=== PATIENT | female | born 1980 | race Caucasian/White ===

== ENCOUNTER → 2017-01-01 | Outpatient (CLI) | payer BC, OTHER ==
--- NOTE | 2017-01-01 16:40 | US ---
Dear MATHEW Loredo, , Thank you for sending your patient, Crystal Pastrana, to us for an US and consultation to assess anatomy. As you know, the patient is a 36 y.o. G2, P1001 at 19 weeks and 4 days with an EDC of 7 based on LMP and 7 week US. Her is complicated by AMA at the time of delivery, thyroid dy sfunction, and a family history of DVT. Crystal's medical history is remarkable for a thyroid nodule and anti-TPO antibodies. She has always had a normal TSH and TFTs and is not on thyroid replacement. She is followed closely by her Endocrino logist, Dr. Mccabe, in this . She had normal TFTs in the 1st and 2nd trimester and will have them checked again with Dr. Mccabe in the 3rd trimester. Crystal's surgical history is significant f or a L inguinal hernia repair. Her OB history is significant for a term . She is currently taking PNV and reports an allergy to erythromycin and sulfa. Crystal's mother developed a DVT in at age 27. She then developed a second DVT at age [address] flight. Crystal believes that her mother was tested for thrombophilias and was n egative. Crystal has no personal history of blood clots and has never been tested for thrombophilias. Genetic Screening: NIPT 46XX (per patient report), AFP neg The patient denies any uterine contractions, vaginal bleeding, or loss of fluid. Today, she is withou t complaints. US FINDINGS: Number of fetuses: 1 Placental location: Posterior, LOW-LYING with inferior edge 1.6 cm from the internal os on transvagin al US Placental Cord Insertion: MARGINAL, inserts in the superior placental edge presentation: Breech Cervix: 5.5 cm, on transvaginal ultrasound MVP: 3.1 cm The adnexa were evaluated. No pathology was seen. Right ovary: Normal Left ovary: Suboptimal heart rate: 139 bpm Measurements: Biparietal diameter: 40 mm, 18 weeks 1 days Head circumference: 159 mm, 18 weeks 6 days Abdominal circumference: 147 mm, 20 weeks 0 days Femur length: 31 mm, 19 weeks 4 days Humerus length: 29 mm, 19 weeks 4 days Transcerebellar diameter: 19 mm, 18 weeks 5 days Average ultrasound age: 19 weeks 1 days Estimated weight: 302 g weight percentile: 47% Anatomy: Supratentorial brain: Normal Cerebral lateral ventricle: 4.6 mm Posterior fossa: Normal Cisterna magna: 3.5 mm Nuchal fold: 3.5 mm Face: - Lip: Normal - Profile: Normal - Alveolar Ridge: Appears intact Spine: -- Cervical: Suboptimal -- Thoracic: Suboptimal -- Lumbar: Suboptimal -- Sacral: Suboptimal Heart: -- 4 Chamber: Normal -- Intraventricular septum: Appears intact by Color and Spectral US -- Right Outflow Tract: Normal -- Left Outflow Tract: Normal -- 3 Vessel View: Normal -- Aortic Arch: Normal -- Ductal Arch: Normal -- Caval View: Normal Diaphragm: Appears intact Stomach: Normal Abdominal Umbilical Cord Insertion: Normal Right kidney: Normal Left kidney: Normal Bladder: Normal Number of cord vessels: 3 Upper extremities: -- Right Arm: Normal -- Right Hand: Limited -- Left Arm: Normal -- Left Hand: Normal Lower extremities: -- Right Leg: Normal -- Right Foot: Suboptimal -- Left Leg: Normal -- Left Foot: Normal, no club foot Gender: Female IMPRESSION: 1. Anatomy: The fetus measures appropriate for gestational age, measuring a normal weight and percen tile. Visualization of the fetus today reveals no overt structural anomalies. However, the spin e, right hand, and right foot were not well seen secondary to position. There is evidence of no rmal amniotic fluid, and movement was seen during the examination. - Recommend a follow-up US in 4-6 weeks to reassess these anatomic structures 2. Genetic Screening: This patient has had reassuring NIPT results this , per her report. To day, no markers of aneuploidy were seen. While her screening and US results are reassuring, we reviewed that aneuploidy can only be definitively excluded with diagnostic testing via amniocen tesis. After this discussion, the patient does not wish to proceed with invasive testing at this time . - Verify reassuring NIPT results 3. Marginal Cord Insertion: This is associated with IUGR. - Growth US at 28-32 weeks 4. Low-Lying Placenta: We discussed that this is likely to resolve with advancing gestational age. We reviewed bleeding precautions. - Reassess placental position at 28-32 weeks 5. Family History of DVT in : Crystal has no personal history of DVT, but has never been saman adelina for inherited thrombophilias. Her mother has had 2 DVTs, one of which occurred at age 27 in pregn yousif. If Crystal was a carrier of a low-risk thrombophilia, this family history would dictate prophyl axis with Lovenox 40 mg daily for 6 weeks . - Obtain records of Crystal's mother's thrombophilia test results - If testing cannot be obtained, consider testing Crystal for the inherited thrombophilias - DVT symptoms and warning signs were discussed Thank you again for sending this patient to see us today. Approximately 15 minutes of a total visit t mariaelena of 12 minutes were spent with this patient today in direct face to face counseling regarding parker shoemaker's US findings and the above recommendations. Please feel free to contact me with any questions at . Crystal Marinelli MD Maternal- Medicine
--- NOTE | 2017-01-02 09:54 | US ---
Complete Detailed Obstetrical Sonography Clinical History: 36-year-old female who will be 37 at the time of delivery and therefore of advanced maternal age. The patient presents for anatomic screening and biometry. Technique: A curvilinear 5 MHz transducer was used to sonographically evaluate the fetus and placenta . M-mode Doppler is used. Supplementary endovaginal pelvic sonography was obtained at the level of th e maternal cervix to assess positioning of the placenta. Dr. Crystal Marinelli was present. Cine clips are acquired. Comparison Study: None from the current . LMP: August 17, 2016, indicating an age of 19 weeks 4 days, and an estimated date of delivery of J 2016. Findings: There is a single viable intrauterine gestation, with the fetus currently breech in present ation. The placenta is posterior and low-lying with the caudal margin 1.6 cm from the internal os as seen on endovaginal sonography, and there is normal maternal cervical length of 5.5 cm. There is a th ree-vessel cord with marginal placental cord insertion along the superior edge of the placenta. The a mniotic fluid volume is appropriate, with a maximal vertical pocket of 3.1 cm. The maternal right ova ry measures 2.5 x 1.1 x 2.8 cm. The left adnexal region is obscured by bowel gas, and the maternal le ft ovary is not identified. The heart rate is 139 bpm. The anatomic survey reveals a normal appearance to the supratentorial and infratentorial struct ures. The lateral ventricular diameter is 4.6 mm, cisterna magna is 3.5 mm, and the nuchal fold is 3. 5 mm. The nasolabial anatomy and alveolar ridge are normal. The spine is evaluated in sagittal and transverse planes, and there is no overt abnormality identified. There is a four-chambered heart, interventricular septum, inflow and outflow tracts, three-vessel view, and aortic and ductal arches. The diaphragm is intact. The stomach, right and left kidneys, urinary bladder, and upper and lower e xtremities are identified, although there is some limited assessment of the right hand and right foot . The gender is female. biometry is as follows: The biparietal diameter is 40 mm, corresponding to an age of 18 weeks 1 day +/- 1 week 6 days, which is at the 4th percentile. The head circumference is 159 mm, corresponding to an age of 18 weeks 6 days +/- 1 week 4 days, which is at the 11th percentile. The abdominal circumference is 147 mm, corresponding to an age of 20 weeks 0 days +/- 2 weeks 1 day, which is at the 58th percentile. The femur length is 31 mm, corresponding to an age of 19 weeks 4 days +/- 1 week 6 days, which is at the 40th percentile. The humeral length is 29 mm, corresponding to an age of 19 weeks 4 days. The transcerebellar diameter is 19 mm, corresponding to an age of 18 weeks 5 days +/- 1 week 0 days f or a composite gestational age of 19 weeks 1 day, which is concordant with menstrual dating. The estimated weight is 302 g +/- 44 g which is 11 ounces +/- 2 ounces, which is at the 47th pe rcentile. The head circumference to abdominal discomfort ratio measures 1.08. The femur length to biparietal di ameter ratio is 78%, and the femur length to abdominal circumference ratio is 21%. Impression: There is a single viable intrauterine gestation with no overt structural anomaly, h aving biometry concordant with menstrual dating. There is also a low-lying placenta with marginal cor d insertion. Please also refer to Dr. Marinelli's separate assessments and specific recommendations for follow up of anatomy.
== END ==
LOC: FIMAGING 14:25
PROVIDERS: ATTEND Advanced Practice Midwife
DX: O09.522 Supervision of elderly multigravida, second trimester (principal); O99.282 Endocrine, nutritional and metabolic diseases complicating pregnancy, second trimester; O36.5120 Maternal care for known or suspected placental insufficiency, second trimester, not applicable or unspecified; O44.42 Low lying placenta NOS or without hemorrhage, second trimester; E07.9 Disorder of thyroid, unspecified; Z3A.19 19 weeks gestation of pregnancy; Z82.49 Family history of ischemic heart disease and other diseases of the circulatory system

== ENCOUNTER → 2017-03-30 | Outpatient (CLI) | payer BC | LOC: FIMAGING 14:55 | PROVIDERS: ATTEND Advanced Practice Midwife | DX: O09.523 Supervision of elderly multigravida, third trimester (principal); Z3A.32 32 weeks gestation of pregnancy ==

== ENCOUNTER 2017-05-06 08:00 | Inpatient (IN) | payer BC ==
[2017-05-06] MEDS ORDERED: OXYTOCIN/RINGERS LACTATE 1,000 ML IV PRN (09:09)
[2017-05-06] MEDS ORDERED: TERBUTALINE SULFATE 1 MG/ML VIAL IV PRN (09:09)
[2017-05-06] MEDS ORDERED: EPSOM SALT 454 GM TP PRN (09:09)
[2017-05-06] MEDS ORDERED: IBUPROFEN 600 MG TAB PO PRN (09:09)
[2017-05-06] MEDS ORDERED: LR 1,000 ML IV PRN (09:09)
[2017-05-06] MEDS ORDERED: OLIVE OIL 118 ML BTL MISC PRN (09:09)
[2017-05-06 09:22] LABS: % IMMATURE GRANULYOCYTES 0.9 % (0.0-1.1); ABSOLUTE IMMATURE GRANULOCYTES 0.09 10^3/uL (0.00-0.10); ADD DIFF? NO; ADD MORPH? NO; ADD SCAN? NO; ATYPICAL LYMPHOCYTE FLAG 10 (0-99); FRAGMENT RBC FLAG 0 (0-99); HEMATOCRIT 37.6 % (38.0-47.0); HEMOGLOBIN 13.2 g/dL (12.6-16.3); LEFT SHIFT FLG 0 (0-99); LIPEMIA HEMOLYSIS FLAG 90 (0-99); MEAN CELL HEMOGLOBIN 32.9 pg (27.9-34.1); MEAN CELL HEMOGLOBIN CONCENTR. 35.1 g/dL (32.4-36.7); MEAN CELL VOLUME 93.8 fL (81.5-99.8); MEAN PLATELET VOLUME 11.1 fL (8.7-11.7); PLATELET CLUMPS FLAG 50 (0-99); PLATELET COUNT 216 10^3/uL (150-400); RED BLOOD CELL COUNT 4.01 10^6/uL (4.18-5.33); RED CELL DISTRIBUTION WIDTH 12.9 % (11.5-15.2)
[2017-05-06] MEDS ORDERED: MISOPROSTOL 200 MCG TAB ONE (10:03)
[2017-05-06] MEDS ORDERED: LIDOCAINE 1% 300 MG/30 ML SDV ONE (10:16)
[2017-05-06] MEDS ORDERED: HYDROCODONE/APAP 5/325 TAB PO PRN (10:31)
[2017-05-06] MEDS ORDERED: ACETAMINOPHEN 325 MG TAB PO PRN (10:31)
[2017-05-06] MEDS ORDERED: MEASLES,MUMPS&RUBELLA VACC/PF 0.5 ML VIAL SC ONE (10:32)
--- NOTE | 2017-05-06 10:36 | OBDEL ---
Info Type: Vaginal GBS+: No Indications for Delivery: Spontaneous Labor, SROM Vaginal Delivery - Labor and Delivery Onset of Contractions Date: 05/06/17 Onset of Contractions Time: 06:30 Onset of Contractions Type: Spontaneous Rupture of Membranes Date: 05/06/17 Rupture of Membranes Time: 04:00 Rupture of Membranes Type: Spontaneous Amniotic Fluid Color: Clear Dilation Complete Date: 05/06/17 Dilation Complete Time: 10:04 Placenta Delivery Date: 05/06/17 Placenta Delivery Time: 10:15 Total Hours of Labor: 3 Laceration: 1st Degree, Other (Specify) (midline) Vaginal Sponge Count Correct: Yes Vaginal Needle Count Correct: Yes Vaginal Sweep Performed: No EBL: 300 Delivery Events: None - Medications Labor Augmentation/Induction Methods Used: None [place] [facility] Delivery Date: 05/06/17 Delivery Time: 10:07 LAVINIA: 05/24/17 Gestational Age: 37 week(s) and 3 day(s) Sex of : Female (Va) Score (1 Min): 8 Score (5 Min): 9 ICD10 Worksheet Patient Problems: Problems Problem Status Onset (spontaneous vaginal delivery) Acute
--- NOTE | 2017-05-06 10:43 | OBGCSDC ---
General Delivery Information - General Info : 2 Para: 2 Abortions: 0 Delivery Physician/CNM: June Donis Admission Date: 05/06/17 Labs: Patient ABO/Rh A POSITIVE 05/06/17 08:30 Hct 37.6 % (38.0-47.0) L 05/06/17 08:30 Vaginal - Diagnosis Labor: Spontaneous Presentation at Delivery: Vertex Rupture of Membranes Type: Spontaneous Amniotic Fluid Color: Clear Laceration: 1st Degree, Other (Specify) (midline) Delivery Events: None - Hospital Course Antepartum: Marginal CI with normal growth U/S in third trimester. AMA. increased one hour glucola with normal 3 hour - Delivery Type: Vaginal EBL: 300 [place] [facility] Delivery Date: 05/06/17 Delivery Time: 10:07 LAVINIA: 05/24/17 Gestational Age: 37 week(s) and 3 day(s) Sex of Infant: Female (Va) Score (1 Min): 8 Score (5 Min): 9
--- NOTE | 2017-05-06 20:35 | GHP ---
[f rep st] HISTORY AND PHYSICAL DATE OF ADMISSION: 05/06/2017 HISTORY UPON ADMISSION: Patient is a 37-year-old, , at 37 weeks' gestation with an estimated d ue date of 05/24/2017, who presented in early active labor after spontaneous rupture of membranes at 4 a.m. with spontaneous onset of contractions at approximately 6:30 am. The patient's contractions were building upon admission, and the patient was intending to have a natural approach at labor. T he fluid was clear upon rupture. The patient was having good movement and managing her pain. The patient was not initially checked on exam as she was just naturally laboring well. HISTORY: Patient has been followed with [facility] [place] since 20 weeks' gestation. Patient had a transfer of care from another office. Patient has had a low-lying placenta with a mar ginal cord insertion noted on an early ultrasound. She had a followup ultrasound at 32 weeks with g ood growth of 55th percentile with no longer a low-lying placenta but a continued marginal cord inse rtion. Good fluid noted on exam. Patient had an episode at 28 weeks of increased contractions and was evaluated with a fibronectin, which was negative, as well a beta strep culture, which was negative. The patient's cervix was not having any change of fingertip dilation, and the patient was advised to increase rest and hydration. This improved the frequency of the contractions. Otherwis e, the has been uncomplicated. LABORATORY DATA: Maternal blood type of A positive with negative antibody screen, RPR nonr eactive, hepatitis B surface antigen negative, HIV negative. Rubella titer was low immunity. TSH w as normal with a normal free T4. Hepatitis C antibody was negative. HSV 1 and 2 were negative. Ur inalysis and culture negative. Pap smear normal. Verifi testing was negative with negative MSAFP. Hematocrit was 37%. 1-hour Glucola was elevated, but a followup 3-hour GTT was normal. GBS cultur e testing was negative. 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 She had a thyroid nodule noted and assessed by an endocrino logist, and was noted to have an anti-TPO antibody. The patient reports reactive airway disease but has been assessed and is negative for asthma. SURGICAL HISTORY: Left inguinal hernia repair in 2009. PAST OBSTETRIC HISTORY: In October 2013, a viable male delivered at 38 weeks after spontaneous rup ture of membranes at 7 pounds 8 ounces. GBS was positive in that . ALLERGIES: To erythromycin causing anaphylaxis and to sulfa causing a rash. CURRENT MEDICATIONS: Only vitamins and iron. SOCIAL HISTORY: The patient is . Lives with her and their son. Patient is a nonsmo ker. No alcohol or drug use. PHYSICAL EXAMINATION: GENERAL: Upon admission, the patient is a well-developed, well-nourished, wh ite female, in discomfort with contractions but showing very good stoic control. VITAL SIGNS: Afeb rile with normal vital signs upon admission. Initial blood pressure was in the 130s over 80s, and a repeat was slightly lower. It was difficult to assess in between the frequent contractions. heart tone monitoring revealed a category 1 tracing with baseline in the 130s with good variability and accelerations; no decelerations noted. Contractions were every 2-3 minutes upon admission. PE LVIC: Not examined upon admission, as the patient was allowed to just naturally labor. Fluid was c onfirmed to be leaking and clear. EXTREMITIES: Nontender with no edema. With Luis's, the baby was in a vertex presentation. ASSESSMENT: Intrauterine at 37 weeks' gestation with spontaneous rupture of membranes and spontaneous onset of labor. GBS culture negative. Marginal cord insertion. History of Bobby' s, not currently on medication. PLAN: We will allow the patient to spontaneously labor and prepare for a vaginal delivery. /[id number]/MODL
--- NOTE | 2017-05-07 07:46 | OBGCSDC ---
General Delivery Information - General Info : 2 Para: 2 Abortions: 0 Delivery Physician/CNM: June Donis Admission Date: 05/06/17 Labs: Patient ABO/Rh A POSITIVE 05/06/17 08:30 Hct 37.6 % (38.0-47.0) L 05/06/17 08:30 Vaginal - Diagnosis Labor: Spontaneous Presentation at Delivery: Vertex Rupture of Membranes Type: Spontaneous Amniotic Fluid Color: Clear Laceration: 1st Degree, Other (Specify) (midline) Delivery Events: None - Operations/Procedures L&D Analgesia/Anesthesia Type: None - Hospital Course : Pt seen and examined. Doing well, no complaints. Some cramping while BF-no meds taken. Moderate lochia. Voiding without difficulty. No BM yet. BF without difficulty. Wants to go home today. - Delivery L&D Analgesia/Anesthesia Type: None [place] [facility] Delivery Date: 05/06/17 Delivery Time: 10:07 LAVINIA: 05/24/17 Gestational Age: 37 week(s) and 4 day(s) Sex of Infant: Female (Va) Weight (gm): 3136 g Score (1 Min): 8 Score (5 Min): 9 Discharge Information - Discharge Information Discharge Medications: Vitamins Condition: Good Instruction/Follow Up: Six Weeks (and 4 weeks) Discharge Physician/CNM: Cecy Seymour
--- NOTE | 2017-05-07 07:48 | OBPP ---
Progress Note Assessment/Plan: Assessment: s/p PPD # 1 - pt is stable Plan: Continue routine pp care Plan for d/c home later today of baby is discharged Instructions reviewed with pt No Rx given Cont PNV Pelvic rest RTC in 4 and 6 weeks 05/07/17 07:46 Subjective: Doing well, no complaints. Some cramping with BF-no meds taken. Mod lochia. No BM yet. BF without difficulty. Wants to go home today. Objective: 05/06/17 08:30 Patient ABO/Rh A POSITIVE 05/06/17 08:30 Temp Pulse Resp BP Pulse Ox 36.6 C 72 16 118/64 99 05/06/17 19:13 05/06/17 19:13 05/06/17 19:13 05/06/17 19:13 05/06/17 19:13 Uterine Position/Fundal Height: Umbilicus -2 Uterine Tone: Firm Physical Exam - Physical Exam General Appearance: WD/WN, alert, no apparent distress Respiratory: lungs clear, normal breath sounds Cardiac/Chest: regular rate, rhythm Abdomen: normal bowel sounds, non-tender, soft, flatus (+) Extremities: non-tender, normal inspection Neuro/Psych: alert, normal mood/affect, oriented x 3
[2017-05-07 09:00] VITALS: BP 111/62; PULSE 88; RESP 17; TEMP 97.7; O2SAT 94
[2017-05-07] MEDS ORDERED: MEASLES,MUMPS&RUBELLA VACC/PF 0.5 ML VIAL SC ONE ×2 (09:00→14:00)
== END 2017-05-07 15:15 | disposition home or self-care (01) | DRG 775 ==
LOC: FLD 08:00 → FOB 14:26
PROVIDERS: ADMIT Obstetrics & Gynecology; ATTEND Obstetrics & Gynecology
PROC: 10E0XZZ Delivery of Products of Conception, External Approach (ICD-10-PCS; principal; 2017-05-06)
DX: O70.0 First degree perineal laceration during delivery (principal); O99.283 Endocrine, nutritional and metabolic diseases complicating pregnancy, third trimester; E06.3 Autoimmune thyroiditis; Z3A.37 37 weeks gestation of pregnancy; Z37.0 Single live birth
CPT/HCPCS: J2590

== ENCOUNTER → 2017-09-11 | Outpatient (CLI) | payer BC | LOC: BMCIMAGING 15:06 | PROVIDERS: ATTEND Internal Medicine Endocrinology, Diabetes & Metabolism | DX: E04.1 Nontoxic single thyroid nodule (principal) | CPT/HCPCS: 76536-PO ==

== ENCOUNTER → 2018-07-21 | Outpatient (CLI) | payer OTHER ==
[~2018-07-21] MED LIST: IOPAMIDOL (ISOVUE-300) 100 ML BTL ONE
== END ==
LOC: FIMAGING 10:54
PROVIDERS: ATTEND Family Medicine
DX: N83.8 Other noninflammatory disorders of ovary, fallopian tube and broad ligament (principal)
CPT/HCPCS: Q9967

== ENCOUNTER → 2019-03-11 | Outpatient (CLI) | payer OTHER | LOC: BMCIMAGING 07:15 | PROVIDERS: ATTEND Family Medicine | DX: N83.201 Unspecified ovarian cyst, right side (principal); R93.89 Abnormal findings on diagnostic imaging of other specified body structures ==